=== PATIENT | male | born 1960 | race Native Hawaiian/Other Pacific Islander ===

== ENCOUNTER 2022-05-16 11:05 | Outpatient (CLI) | payer OTHER ==
[~2022-05-16 11:05] MED LIST: ADLT ASA LOW81 MG PO; ALPR0.5T24 PO; ATEN25TA21 PO; HYDR-2748 PO; HYDR25TA60 PO; LISI20TA11 PO; METF500T PO; SIMV20TA2 PO
== END 2022-05-16 19:34 | disposition home or self-care (01) ==
LOC: RAD 11:05
PROVIDERS: ATTEND Family Medicine
DX: M25.551 Pain in right hip (principal); M79.651 Pain in right thigh; M25.561 Pain in right knee

== ENCOUNTER 2022-07-11 17:40 | Emergency (ER) | payer OTHER ==
[~2022-07-11] VITALS: Ht 177.8 cm; Wt 90.7 kg
[2022-07-11 17:40] VITALS: TEMP 97.9
[2022-07-11 18:40] LABS: PLATELET COUNT 475 K/uL (142-355)
[2022-07-11 18:49] LABS: POTASSIUM 3.6 mmol/L (3.6-5.2)
[2022-07-11 20:50] VITALS: BP 145/71
== END 2022-07-11 21:00 | disposition home or self-care (01) ==
LOC: ED 17:50
PROVIDERS: Emergency Medicine Emergency Medical Services
DX: E11.649 Type 2 diabetes mellitus with hypoglycemia without coma (principal); Z79.84 Long term (current) use of oral hypoglycemic drugs
CPT/HCPCS: 80053; 81002; 83735; 84484; 85027; 93005; 96360; 96374; 99284; J0360

== ENCOUNTER 2022-08-27 23:00 | Observation (INO) | payer OTHER ==
[~2022-08-27] VITALS: Ht 182.9 cm; Wt 81.6 kg
[2022-08-27 23:00] VITALS: BP 188/94; BP 192/94; TEMP 98.7
[2022-08-27 23:30] LABS: PLATELET COUNT 336 K/uL (142-355)
[2022-08-27 23:55] LABS: POTASSIUM 3.4 mmol/L (3.6-5.2)
[2022-08-28 00:40] VITALS: BP 149/71
[2022-08-28 01:59] VITALS: BP 146/79; TEMP 97.9; Ht 182.9 cm; Wt 81.6 kg
[2022-08-28 04:00] VITALS: BP 150/75; TEMP 98
[2022-08-28 08:02] VITALS: BP 149/68; TEMP 98.6
[2022-08-28 12:00] VITALS: BP 171/80; TEMP 98.4
[2022-08-28] MEDS ORDERED: ALPR0.5T24 PO (12:15)
[2022-08-28] MEDS ORDERED: DICL75TA4 PO (12:17)
== END 2022-08-28 12:23 | disposition home or self-care (01) ==
LOC: ED 23:00 → MED/SURG 08-28 00:33
PROVIDERS: ADMIT Emergency Medicine; ATTEND Internal Medicine
DX: E11.649 Type 2 diabetes mellitus with hypoglycemia without coma (principal); E78.49 Other hyperlipidemia; I10 Essential (primary) hypertension; M15.8 Other polyosteoarthritis; E11.42 Type 2 diabetes mellitus with diabetic polyneuropathy; W18.39XA Other fall on same level, initial encounter; Y92.091 Bathroom in other non-institutional residence as the place of occurrence of the external cause; S09.8XXA Other specified injuries of head, initial encounter
CPT/HCPCS: 80048; 80053; 82948; 84484; 85027; 87635; 93005; 96374; 96375; 99220; 99284; G0378; J0360; J7060; U0003

== ENCOUNTER 2023-02-10 08:38 | Outpatient (CLI) | payer OTHER ==
[~2023-02-10 08:38] MED LIST changes: +DICL75TA4 PO
== END 2023-02-10 19:40 | disposition home or self-care (01) ==
LOC: RAD 08:38
PROVIDERS: ATTEND Family Medicine
DX: Z01.818 Encounter for other preprocedural examination (principal); I10 Essential (primary) hypertension; D64.89 Other specified anemias; E11.9 Type 2 diabetes mellitus without complications
CPT/HCPCS: 93005

== ENCOUNTER 2023-02-23 08:57 | Outpatient (CLI) | payer OTHER ==
[2023-02-23 09:25] LABS: POTASSIUM 4.1 mmol/L (3.6-5.2)
[2023-02-23 09:37] LABS: PLATELET COUNT 385 K/uL (142-355)
== END 2023-02-23 18:57 | disposition home or self-care (01) ==
LOC: LABW 08:57
PROVIDERS: ATTEND Orthopaedic Surgery
DX: Z01.818 Encounter for other preprocedural examination (principal); E11.9 Type 2 diabetes mellitus without complications; R01.1 Cardiac murmur, unspecified; D64.89 Other specified anemias; I10 Essential (primary) hypertension
CPT/HCPCS: 36415; 80053; 81002; 83036; 85027; 87070